=== PATIENT | female | born 1995 | race Caucasian/White ===

== ENCOUNTER 2021-01-07 11:18 | Emergency (ER) | payer OTHER ==
--- NOTE | 2021-01-07 13:15 | ED Physician Documentation ---
History of Present Illness - Stated complaint Stated Complaint: ABD PX - Chief complaint Chief Complaint: Abd Pain - Additonal information Additional information: 25-year-old female presents emergency department for evaluation of worsening a bdominal pain. She states it has been present for nearly a year. She often has cramping. She sometimes has cramping after eating but cannot associate it with any specific foods. She reports she is had extensive food allergy testing and has found no allergies. She has been seen by a machine tender and has had a trial of antibiotics without relief of symptoms. She also underwent a colonoscopy about 2 weeks ago that did not show any worrisome findings. Currently she is trying to manage her symptoms with Gas-X but finding no relief. She called the nurse advice line and was told to come to the ER today. Pt is worried that there may be a problem with her small intestines She denies any fevers or vomiting. States that she has watery diarrhea on average of 1-2 times a week. Denies any dysuria urgency or frequency. She has had no weight loss. She did attempt again to contact with her machine tender but was told he only works once a week and she does not feel that she can wait until late January for her follow-up appointment. Review of Systems Constitutional: denies: Fever, Chills Eyes: reports: Reviewed and negative Ears: reports: Reviewed and negative Nose: reports: Reviewed and negative Throat: reports: Reviewed and negative Cardiac: reports: Reviewed and negative Respiratory: reports: Reviewed and negative GI: reports: Abdominal Pain, Diarrhea. denies: Nausea, Vomiting, Constipation : reports: Reviewed and negative Skin: reports: Reviewed and negative Musculoskeletal: reports: Reviewed and negative PD PAST MEDICAL HISTORY - Past Medical History Past Medical History: Yes GI: GERD - Past Surgical History Past Surgical History: No - Present Medications Home Medications: Ambulatory Orders Medication Instructions Recorded Confirmed Dicyclomine [Bentyl] 10 mg PO QID PRN #30 cap 01/07/21 - Allergies Allergies/Adverse Reactions: Allergies Allergy/AdvReac Type Severity Reaction Status Date / Time No Known Drug Allergies Allergy Verified 01/07/21 11:37 - Social History Does the pt smoke?: No Smoking Status: Never smoker Does the pt drink ETOH?: Yes Does the pt have substance abuse?: No - Immunizations Immunizations are current?: Yes - POLST Patient has POLST: No PD ED PE EXPANDED - General General: Alert, No acute distress, Well developed/nourished - Cardiac Cardiac: Regular Rate, Radial strong equal, Cap refill < 2 sec - Respiratory Respiratory: Clear to ausultation kodi. No: Distress, Labored - Abdomen Abdomen: Normal Bowel sounds, Tender to palpation (Generalized abdominal tenderness. Nonfocal. No guarding or rebound.). No: Rebound, Guarding, Pulsatile, Surgical scars - Back Back: Normal exam. No: CVA TTP right, CVA TTP left - Derm Derm: Normal color, Warm and dry. No: Rash - Extremities Extremities: Normal. No: Deformity, Tenderness - Neuro Neuro: Alert and Oriented X 3, CNII-XII intact - GCS Eye Opening: Spontaneous Motor: Obeys Commands Verbal: Oriented Total: 15 Results - Vitals Vitals: Vital Signs - 24 hr 01/07/21 11:34 Temperature 36.1 C L Heart Rate 53 L Respiratory 16 Rate Blood Pressure 111/78 O2 Saturation 100 Oxygen O2 Source Room air - Labs Labs: Laboratory Tests 01/07/21 01/07/21 01/07/21 13:12 13:12 13:12 WBC 6.2 RBC 4.68 Hgb 14.0 Hct 42.8 MCV 91.5 MCH 29.9 MCHC 32.7 RDW 13.2 Plt Count 319 MPV 9.8 Neut # (Auto) 4.2 Lymph # (Auto) 1.5 [place] # (Auto) 0.4 Eos # (Auto) 0.1 Baso # (Auto) 0.0 Absolute Nucleated RBC 0.00 Nucleated RBC % 0.0 Sodium 140 Potassium 3.5 Chloride 101 Carbon Dioxide 29 Anion Gap 10.0 BUN 14 Creatinine 0.9 Estimated GFR (MDRD) 76 L Glucose 95 Calcium 9.9 Total Bilirubin 1.1 H AST 17 ALT 15 Alkaline Phosphatase 45 Total Protein 7.7 Albumin 4.8 Globulin 2.9 Albumin/Globulin Ratio 1.7 Lipase 32 HCG, Quant < 0.60 PD MEDICAL DECISION MAKING - ED course Complexity details: considered differential, d/w patient ED course: 25-year-old female presents emergency department for evaluation of chronic abdominal pain that has been ongoing now for nearly 1 year. She often has associated cramping after meals but does not associate it with any specific foods. Food allergy testing has been negative. She denies black or bloody stools, no fevers or weight loss. Had an unremarkable colonoscopy completed 3 GI at [facility] last week. She is frustrated as she has not yet unclear diagnosis. Her machine tender has brought up the possibility that she may have lupus though she does not have any typical features suggestive of this. Screening labs today were unremarkable. Her abdominal exam was rather benign though she did have some mild generalized nonfocal tenderness. Screening CT scan did not show any acute findings. Normal appendix, normal gallbladder and no signs of intestinal obstruction or mass. I suspect that she may have a form of irritable bowel syndrome and will prescribe some Bentyl. I have encouraged to have close follow-up with her PCP as well as gastroenterology. Emergent worrisome return precautions were discussed. Departure - Departure Disposition: 01 Home, Self Care Clinical Impression: Chronic abdominal pain Condition: Stable Record reviewed to determine appropriate education?: Yes Instructions: ED Abdominal Pain Unkn Cause Follow-Up: MARVIN FRANCIS MD [Primary Care Provider] - Prescriptions: Dicyclomine [Bentyl] 10 mg PO QID PRN #30 cap PRN Reason: Pain Comments: You are seen in the emergency department today for chronic abdominal pain. As we discussed your screening labs were essentially normal as well as the CAT scan of your abdomen. I encourage you to continue close follow-up with your machine tender. I am prescribing Bentyl medication that may help with the intermittent spasm and cramping you have in your belly. Is important that you continue to discuss your lupus concerns with your primary care doctor. This is testing that should be completed through them. If at any point you develop black or bloody stools, have severe or different abdominal pain or have uncontrolled vomiting then please return immediately to the ER for a second evaluation.
[2021-01-07 13:20] LABS: BASOPHILS % (AUTO) 0.6 %; EOSINOPHILS # (AUTO) 0.1 10^3/uL (0.0-0.7); EOSINOPHILS % (AUTO) 1.4 %; HCT - HEMATOCRIT 42.8 % (37.0-47.0); LYMPHOCYTES # (AUTO) 1.5 10^3/uL (1.5-3.5); LYMPHOCYTES % (AUTO) 24.1 %; MEAN CORPUSCULAR HEMOGLOBIN 29.9 pg (27.0-31.0); MEAN CORPUSCULAR HGB CONC 32.7 g/dL (32.0-36.0); MEAN CORPUSCULAR VOLUME 91.5 fL (81.0-99.0); MEAN PLATELET VOLUME 9.8 fL (7.9-10.8); MONOCYTES # (AUTO) 0.4 10^3/uL (0.0-1.0); MONOCYTES % (AUTO) 6.6 %; NEUTROPHILS # (AUTO) 4.2 10^3/uL (1.5-6.6); PLT - PLATELET COUNT 319 10^3/uL (130-450); RED BLOOD COUNT 4.68 10^6/uL (4.20-5.40); RED CELL DISTRIBUTION WIDTH 13.2 % (12.0-15.0); WHITE BLOOD COUNT 6.2 x10^3/uL (4.8-10.8)
[2021-01-07 13:33] LABS: ALBUMIN 4.8 g/dL (3.2-5.5); ALBUMIN/GLOBULIN RATIO 1.7 (1.0-2.2); BILIRUBIN,TOTAL 1.1 mg/dL (0.2-1.0); CALCIUM 9.9 mg/dL (8.5-10.3); CREATININE 0.9 mg/dL (0.4-1.0); POTASSIUM 3.5 mmol/L (3.5-5.0); TOTAL PROTEIN 7.7 g/dL (6.7-8.2)
[2021-01-07] MEDS ORDERED: IOPAMIDOL-300 100 ML VIAL ONE (13:44)
--- NOTE | 2021-01-07 14:17 | CT Report ---
PROCEDURE: Abdomen/Pelvis W INDICATIONS: chronic abd pain; negative colonoscopy 2 weeks ago CONTRAST: IV CONTRAST: Isovue 300 ml: 100 PO CONTRAST: *NO PO CONTRAST TECHNIQUE: After the administration of IV contrast, 5 mm thick sections acquired from the diaphragms to the symp hysis. 5 mm thick coronal and sagittal reformats were acquired. For radiation dose reduction, the f ollowing was used: automated exposure control, adjustment of mA and/or kV according to patient size. COMPARISON: None. FINDINGS: Image quality: Excellent. ABDOMEN: Lung bases: Lung bases are clear. Heart size is normal. Solid organs: Liver and spleen are normal in size and enhancement. Gallbladder is within normal rubalcava its Biliary system is non dilated. Pancreas enhances normally. No adrenal nodules. Kidneys demons trate normal size and enhancement, without hydronephrosis. Peritoneum and bowel: Bowel loops demonstrate normal wall thickness and caliber. No pneumoperitoneu m is present. Small amount of free fluid within the pelvis is present, within physiological limits in a menstruating female. Appendix is normal. Nodes and vessels: No retroperitoneal or mesenteric adenopathy by size criteria. Aorta and inferior vena cava are normal in size. Miscellaneous: No ventral hernias. PELVIS: Genitourinary: Bladder wall thickness is normal. Miscellaneous: No inguinal hernias or adenopathy. Bones: No suspicious bony lesions. No vertebral body compression fractures. IMPRESSION: 1. No acute process. 2. Normal appendix. Reviewed by: Jennifer Vega MD on 01/07/2021 2:16 PM PDT Approved by: Jennifer Vega MD on 01/07/2021 2:16 PM PDT Station ID: [id number]
[2021-01-07] MEDS ORDERED: IOPAMIDOL-300 100 ML VIAL IVP ONE (14:27)
[2021-01-07 14:44] VITALS: BP 115/80
== END 2021-01-07 14:45 | disposition home or self-care (01) ==
LOC: ED 11:18
DX: R10.84 Generalized abdominal pain (principal); G89.29 Other chronic pain
CPT/HCPCS: 36415; 74177; 80053; 83690; 84702; 85025; 99284; Q9967; 84703

== ENCOUNTER 2021-06-24 21:20 | Emergency (ER) | payer OTHER ==
[2021-06-24] MEDS ORDERED: ONDANSETRON 4 MG/2 ML VIAL IVP STA (21:48)
[2021-06-24] MEDS ORDERED: SODIUM CHLORIDE 0.9% 1,000 ML IV STA (21:48)
[2021-06-24] MEDS ORDERED: ACETAMINOPHEN 325 MG TABLET PO STA (21:49)
[2021-06-24 22:13] LABS: BASOPHILS % (AUTO) 0.5 %; EOSINOPHILS # (AUTO) 0.2 10^3/uL (0.0-0.7); EOSINOPHILS % (AUTO) 3.2 %; HCT - HEMATOCRIT 40.7 % (37.0-47.0); HGB - HEMOGLOBIN 13.5 g/dL (12.0-16.0); LYMPHOCYTES # (AUTO) 2.2 10^3/uL (1.5-3.5); LYMPHOCYTES % (AUTO) 29.4 %; MEAN CORPUSCULAR HEMOGLOBIN 30.3 pg (27.0-31.0); MEAN CORPUSCULAR HGB CONC 33.2 g/dL (32.0-36.0); MEAN CORPUSCULAR VOLUME 91.3 fL (81.0-99.0); MEAN PLATELET VOLUME 10.1 fL (7.9-10.8); MONOCYTES # (AUTO) 0.7 10^3/uL (0.0-1.0); MONOCYTES % (AUTO) 8.9 %; NEUTROPHILS # (AUTO) 4.3 10^3/uL (1.5-6.6); NEUTROPHILS % (AUTO) 57.7 %; PLT - PLATELET COUNT 333 10^3/uL (130-450); RED BLOOD COUNT 4.46 10^6/uL (4.20-5.40); RED CELL DISTRIBUTION WIDTH 13.1 % (12.0-15.0); WHITE BLOOD COUNT 7.5 x10^3/uL (4.8-10.8)
[2021-06-24 22:29] LABS: ALBUMIN 4.5 g/dL (3.2-5.5); ALBUMIN/GLOBULIN RATIO 1.7 (1.0-2.2); BILIRUBIN,TOTAL 0.7 mg/dL (0.2-1.0); CALCIUM 9.5 mg/dL (8.5-10.3); CREATININE 0.8 mg/dL (0.4-1.0); POTASSIUM 3.4 mmol/L (3.5-5.0); TOTAL PROTEIN 7.1 g/dL (6.7-8.2)
[2021-06-24 22:58] LABS: BILIRUBIN,URINE NEGATIVE (NEGATIVE); GLUCOSE, URINE (UA) NEGATIVE (NEGATIVE); KETONES,URINE (UA) NEGATIVE (NEGATIVE); LEUKOCYTE ESTERASE, URINE NEGATIVE (NEGATIVE); NITRITE,URINE NEGATIVE (NEGATIVE); OCCULT BLOOD,URINE NEGATIVE (NEGATIVE); PROTEIN,URINE NEGATIVE (NEGATIVE); UROBILINOGEN,URINE 0.2 (NORMAL) E.U./dL (NORMAL)
[2021-06-24 23:00] LABS: CLARITY,URINE CLEAR (CLEAR); HCG UR QUAL NEGATIVE
[2021-06-24] MEDS ORDERED: KETOROLAC 15 MG/ML VIAL IVP STA (23:02)
--- NOTE | 2021-06-24 23:04 | ED Physician Documentation ---
History of Present Illness - Stated complaint Stated Complaint: ABD PX/NAUSEA - Chief complaint Chief Complaint: Abd Pain - History obtained from History obtained from: Patient - Additonal information Additional information: 25yF with pmh ibs p/w needle like pain in the BL LQ X 3.5 weeks a/w chronic nbnb n/v and chronic nonbloody diarrhea. patient states she had blood in her stool at one point but not today. had negative colonoscopy in Dec 2020. denies dysuria, vag bleeding, discharge. smokes marijuana. Review of Systems Ten Systems: 10 systems reviewed and negative Constitutional: denies: Fever, Chills GI: reports: Abdominal Pain, Nausea, Vomiting, Diarrhea : denies: Dysuria, Frequency PD PAST MEDICAL HISTORY - Past Medical History GI: GERD - Past Surgical History Past Surgical History: No - Present Medications Home Medications: Ambulatory Orders Medication Instructions Recorded Confirmed Dicyclomine [Bentyl] 10 mg PO QID PRN #30 cap 01/07/21 Ondansetron Odt [Zofran Odt] 4 mg TL Q6H PRN #10 tablet 06/24/21 - Allergies Allergies/Adverse Reactions: Allergies Allergy/AdvReac Type Severity Reaction Status Date / Time No Known Drug Allergies Allergy Verified 06/24/21 21:35 - Social History Does the pt smoke?: No Smoking Status: Never smoker Does the pt drink ETOH?: Yes Does the pt have substance abuse?: No - Immunizations Immunizations are current?: Yes - POLST Patient has POLST: No PD ED PE NORMAL - Vitals Vital signs reviewed: Yes - General General: Alert and oriented X 3, No acute distress, Well developed/nourished - HEENT HEENT: Atraumatic, PERRL, EOMI - Neck Neck: Supple, no meningeal sign - Cardiac Cardiac: RRR - Respiratory Respiratory: No respiratory distress, Clear bilaterally - Abdomen Abdomen: Non tender, Non distended, Other (discomfort in BLLQ) - Back Back: No CVA TTP - Derm Derm: Normal color, Warm and dry - Extremities Extremities: No deformity - Neuro Neuro: Alert and oriented X 3, No motor deficit, No sensory deficit - Psych Psych: Normal mood, Normal affect Results - Vitals Vitals: Vital Signs - 24 hr 06/24/21 06/24/21 06/24/21 21:32 21:35 23:12 Temperature 36.1 C L 36.5 C 36.5 C Heart Rate 58 L 60 62 Respiratory 16 16 16 Rate Blood Pressure 101/68 101/68 109/67 O2 Saturation 100 100 99 Oxygen O2 Source Room air - Labs Labs: Laboratory Tests 06/24/21 06/24/21 06/24/21 21:43 21:43 21:43 WBC 7.5 RBC 4.46 Hgb 13.5 Hct 40.7 MCV 91.3 MCH 30.3 MCHC 33.2 RDW 13.1 Plt Count 333 MPV 10.1 Neut # (Auto) 4.3 Lymph # (Auto) 2.2 [place] # (Auto) 0.7 Eos # (Auto) 0.2 Baso # (Auto) 0.0 Absolute Nucleated RBC 0.00 Nucleated RBC % 0.0 Sodium 137 Potassium 3.4 L Chloride 102 Carbon Dioxide 29 Anion Gap 6.0 BUN 18 Creatinine 0.8 Estimated GFR (MDRD) 87 L Glucose 71 Calcium 9.5 Total Bilirubin 0.7 AST 22 ALT 23 Alkaline Phosphatase 58 Total Protein 7.1 Albumin 4.5 Globulin 2.6 Albumin/Globulin Ratio 1.7 Lipase 36 HCG, Quant < 0.60 Urine Color Urine Clarity Urine pH Ur Specific [place] Urine Protein Urine Glucose (UA) Urine Ketones Urine Occult Blood Urine Nitrite Urine Bilirubin Urine Urobilinogen Ur Leukocyte Esterase Ur Microscopic Review Urine Culture Comments Urine HCG, Qual 06/24/21 22:48 WBC RBC Hgb Hct MCV MCH MCHC RDW Plt Count MPV Neut # (Auto) Lymph # (Auto) [place] # (Auto) Eos # (Auto) Baso # (Auto) Absolute Nucleated RBC Nucleated RBC % Sodium Potassium Chloride Carbon Dioxide Anion Gap BUN Creatinine Estimated GFR (MDRD) Glucose Calcium Total Bilirubin AST ALT Alkaline Phosphatase Total Protein Albumin Globulin Albumin/Globulin Ratio Lipase HCG, Quant Urine Color YELLOW Urine Clarity CLEAR Urine pH 7.0 Ur Specific [place] <=1.005 Urine Protein NEGATIVE Urine Glucose (UA) NEGATIVE Urine Ketones NEGATIVE Urine Occult Blood NEGATIVE Urine Nitrite NEGATIVE Urine Bilirubin NEGATIVE Urine Urobilinogen 0.2 (NORMAL) Ur Leukocyte Esterase NEGATIVE Ur Microscopic Review NOT INDICATED Urine Culture Comments NOT INDICATED Urine HCG, Qual NEGATIVE PD MEDICAL DECISION MAKING - ED course ED course: 25yF p/w symptoms concerning for IBS flare. symptom care discussed and specialist referral provided. return precautions given. Departure - Departure Disposition: 01 Home, Self Care Clinical Impression: IBS (irritable bowel syndrome) Condition: Stable Instructions: ED IBS Prescriptions: Ondansetron Odt [Zofran Odt] 4 mg TL Q6H PRN #10 tablet PRN Reason: Nausea / Vomiting Comments: You were seen in the emergency department for evaluation of nausea and abdominal pain. Your vital signs, physical exam, and labwork were normal. You have no signs of uti and you are not . You may be suffering from IBS, and I would recommend seeing a specialist (referral below). [place] and return to the emergency department if you have new or worsening symptoms or other concerns. Dr. Clovis Camarillo, [facility] [id number] [address] [place] [id number] Discharge Date/Time: 06/24/21 23:30
[2021-06-24 23:13] VITALS: BP 109/67
== END 2021-06-24 23:30 | disposition home or self-care (01) ==
LOC: ED 21:20
DX: K58.9 Irritable bowel syndrome, unspecified (principal)
CPT/HCPCS: 36415; 80053; 81003; 81025; 83690; 84702; 85025; 96374; 96375; 99283; A9270; 81001; 87086